=== PATIENT | male | born 2000 | race Caucasian/White ===

== ENCOUNTER 2021-08-13 07:09 | Emergency (ER) | payer OTHER ==
[~2021-08-13] VITALS: Ht 175.3 cm; Wt 84.1 kg
[2021-08-13 10:25] LABS: BASO # 0.1 10^3/uL (0.0-0.2); EOS # 0.3 10^3/uL (0.0-0.5); EOS % 4.4 % (0.0-3.0); HEMATOCRIT 48.9 % (42.0-52.0); HEMOGLOBIN 16.3 g/dl (13.5-17.5); LYMPH % 41.4 % (24.0-44.0); MEAN CORPUSCULAR HEMOGLOBIN 29.2 pg (27.0-33.0); MEAN CORPUSCULAR HGB CONC 33.3 g/dl (32.0-36.5); MEAN CORPUSCULAR VOLUME 87.6 fl (80.0-96.0); MONO # 0.8 10^3/uL (0.0-0.8); MONO % 10.9 % (2.0-8.0); NEUTROPHILS # 3.1 10^3/uL (1.5-8.5); NEUTROPHILS % 42.2 % (36.0-66.0); PLATELET COUNT, AUTOMATED 279 10^3/uL (150-450); RED BLOOD COUNT 5.58 10^6/uL (4.30-6.10); WHITE BLOOD COUNT 7.3 10^3/uL (4.0-10.0)
[2021-08-13 11:16] LABS: ALBUMIN 4.1 GM/DL (3.2-5.2); ALT/SGPT 63 U/L (12-78); BILIRUBIN,TOTAL 0.4 MG/DL (0.2-1.0); BLOOD UREA NITROGEN 13 MG/DL (7-18); CALCIUM LEVEL 9.5 MG/DL (8.5-10.1); CARBON DIOXIDE LEVEL 28 MEQ/L (21-32); CHLORIDE LEVEL 106 MEQ/L (98-107); CK-MB VALUE MASS < 1.0 NG/ML (<3.6); CPK CREATINE PHOSPHOKINASE 128 U/L (39-308); CREATININE FOR GFR 0.88 MG/DL (0.70-1.30); GLOMERULAR FILTRATION RATE > 60.0 (>60); GLUCOSE, FASTING 71 MG/DL (70-100); MB/CK RELATIVE INDEX 0.78 (< OR =4); POTASSIUM SERUM 4.1 MEQ/L (3.5-5.1); SODIUM LEVEL 139 MEQ/L (136-145); TROPONIN I < 0.02 NG/ML (< 0.10)
[2021-08-13] MEDS ORDERED: ISOVUE-370 76% 100ML VIAL As Ordered ONE (11:20)
[2021-08-13 12:49] VITALS: BP 121/65
== END 2021-08-13 13:05 | disposition home or self-care (01) ==
LOC: M ED 07:09
DX: R06.02 Shortness of breath (principal); R00.1 Bradycardia, unspecified; F17.200 Nicotine dependence, unspecified, uncomplicated
CPT/HCPCS: 36415; 71101; 71275; 80053; 82550; 82553; 84484; 85025; 85379; 87798; 93005; 99284; Q9967

== ENCOUNTER → 2021-11-02 | Outpatient (CLI) | payer OTHER ==
[~2021-11-02] MED LIST: METHACHOLINE KIT (J7674) INH ONE
--- NOTE | 2021-11-02 10:21 | PFTRPT ---
Site: [facility], [address] [place], [address] ID: [id number] Name: NEELAM SMART Visit Date: 11/02/2021 Second ID: [id number] Referring Doctor: KIM Yañez Marcus, M Reviewing Doctor: Rory Strong MD Dip Stand Loader: Marija APPIAH RRT Age: 20 : 2000 Sex: Male Race: Height: 68.50 Inches Weight: 180.00 Lbs BSA: 1.96 Order IDs: [id number] Requested Test(s): <RESP-PFT.METH CHAL> Diagnosis: R06.00 of albuterol for post bronchodilator. Review Status: Not Reviewed Pre-Bronch Post-Bronch Pred Actual %Pred Actual %Chng SPIROMETRY FVC (L) 5.32 6.30 118 6.51 3 FEV1 (L) 4.43 4.77 107 4.82 1 FEV1/FVC (%) 83 76 91 74 -2 FEF 25% (L/sec) 8.32 7.62 91 7.26 -4 FEF 50% (L/sec) 5.86 4.63 78 4.82 4 FEF 75% (L/sec) 2.26 2.03 89 2.16 6 FEF 25-75% (L/sec) 4.69 4.05 86 4.19 3 FEF Max (L/sec) 9.82 7.95 80 7.75 -2 FIVC (L) 6.56 6.57 FIF 50% (L/sec) 5.69 5.25 92 6.31 20 FIF Max (L/sec) 5.81 6.80 16 Expiratory Time (sec) 6.68 7.09 6 Back Extrap Vol (L) 0.14 0.20 36 Time To FEFmax (sec) 0.136 0.133 -2
== END ==
LOC: M CARPUL 09:11
PROVIDERS: ATTEND Physician Assistant
DX: R06.00 Dyspnea, unspecified (principal)
CPT/HCPCS: 94070; J7674

== ENCOUNTER → 2022-02-11 | Outpatient (CLI) | payer OTHER | LOC: M PLAIMG 08:59 | PROVIDERS: ATTEND Physician Assistant | DX: R91.8 Other nonspecific abnormal finding of lung field (principal) ==

== ENCOUNTER → 2022-03-11 | Outpatient (REF) | LOC: M PLAIMG 08:39 | PROVIDERS: ATTEND Internal Medicine | DX: M25.511 Pain in right shoulder (principal); M25.512 Pain in left shoulder ==